=== PATIENT | male | born 1950 | race Caucasian/White ===

== ENCOUNTER → 2020-07-29 | Outpatient (CLI) | payer OTHER ==
[~2020-07-29] MED LIST: RELIEF FACTOR PO
== END ==
LOC: LAB 09:22
PROVIDERS: ATTEND Orthopaedic Surgery
DX: Z01.812 Encounter for preprocedural laboratory examination (principal); Z20.828 Contact with and (suspected) exposure to other viral communicable diseases

== ENCOUNTER 2020-08-04 07:31 | Day surgery (SDC) | payer OTHER ==
[2020-07-29 09:22] LABS: URINE BILIRUBIN NEGATIVE (Negative); URINE BLOOD NEGATIVE (Negative); URINE CLARITY CLEAR; URINE COLOR YELLOW; URINE GLUCOSE-RANDOM* NEGATIVE (Negative); URINE KETONES NEGATIVE (Negative); URINE LEUKOCYTES-REFLEX NEGATIVE (Negative); URINE NITRITE-REFLEX NEGATIVE (Negative); URINE PROTEIN (DIPSTICK) NEGATIVE (Negative); URINE SPECIFIC GRAVITY <= 1.005 (1.005-1.035); URINE UROBILINOGEN 0.2 E.U./dl (0.2-1.0)
[2020-07-29 09:23] LABS: HEMATOCRIT 41.9 % (42.0-52.0); HEMOGLOBIN 14.4 gm/dL (14.0-18.0); MCH 31.5 pg (26.0-34.0); MCHC 34.5 g/dL (28.0-37.0); MCV 91.4 fL (80.0-100.0); RBC 4.58 mil/uL (4.50-6.00); RDW 12.6 % (10.5-14.5); WBC 6.3 thou/uL (4.0-11.0)
[2020-07-29 09:35] LABS: ALBUMIN 4.1 g/dL (3.4-5.0); CREATININE 1.4 mg/dL (0.7-1.3); POTASSIUM 4.1 mmol/L (3.5-5.1)
[2020-07-29 09:48] LABS: PROTIME 10.4 Seconds (9.3-11.4)
[2020-08-04] VITALS (8 sets, daily range): BP systolic 115–178; BP diastolic 66–91
[~2020-08-04] VITALS: Ht 182.9 cm; Wt 101.6 kg
--- NOTE | 2020-08-04 15:32 | NUR ---
PT ARRIVED AT 1300, ALERT AND ORIENTED*4. C/O LEFT KNEE PAIN, PAIN MEDICATION ADMINISTERED NEEDED. LEFT KNEE INCISION REMAINS DRY AND INTACT, BERNY DRESSING IN PLACE. COLD APPLIED TO LEFT KNEE PER ORDER. SCD AND DAYSI HOSE IN PLACE. PT PARTICIPATED IN THERAPY AND TOLERATED WELL. UP WITH 1 MIN ASSIST, GB AND WALKER. Q1H VISUAL CHECKS. CALL LIGHT WITHIN REACH
--- NOTE | 2020-08-04 15:47 | NUR ---
ASSESSMENT: CM REVIEWED CHART AND SPOKE WITH PT. PT IS S/P TKA. PT REPORTS LIVING IN A HOUSE WITH HIS . PT REPORTS ABOUT 6 STEPS TO ENTER WITH NO HANDRAIL. PT REPORTS ONCE INSIDE PT HAS ABOUT 13 STEPS WITH HR TO HIS BEDROOM. PT REPORTS THAT HE HAS NO DME AT HOME. PHYSICAL THERAPY IS WORKING WITH PATIENT AND HE IS NEEDING A WALKER FOR HOME. CM DISCUSSED WITH PT AND HAS NO PREFERENCE OF DME COMPANY. CM SPOKE WITH [facility] WHO STATES THEY CAN DELIVER WALKER TO PATIENTS ROOM TOMORROW. PT WILL CONTINUE TO WORK WITH THERAPY. CM WILL CONTINUE TO FOLLOW TO ASSIST NEEDED.
--- NOTE | 2020-08-05 03:59 | NUR ---
PT C/O PAIN AT THE BACK OF HIS L KNEE,MANAGED WITH MED.UP WITH SBA TO THE TOILET,GOOD ENDURANCE NOTED.PT WITH GOOD URINE OUTPUT.NO BM NOTED THIS SHIFT.BERNY DRSG INTACT.DAYSI VIDAL/MARÍA AND POLAR PACK IN PLACE.PT LOOKING FORWARD TO BE DC'D LATER TODAY.CALL LIGHT WITHIN REACH.
[2020-08-05 04:17] VITALS: BP 113/64
[2020-08-05 06:15] LABS: HEMATOCRIT 32.7 % (42.0-52.0); HEMOGLOBIN 11.2 gm/dL (14.0-18.0); MCH 31.7 pg (26.0-34.0); MCHC 34.4 g/dL (28.0-37.0); MCV 92.3 fL (80.0-100.0); RBC 3.55 mil/uL (4.50-6.00); RDW 12.7 % (10.5-14.5); WBC 11.1 thou/uL (4.0-11.0)
[2020-08-05 06:55] VITALS: BP 126/54
--- NOTE | 2020-08-05 10:19 | NUR ---
on-going assessment: CM REVIEWED CHART AND SPOKE WITH PT. PTS WALKER WAS DELIVERED TO HIS ROOM BY [facility]. PT REPORTS ATTENDING IS ARRANGING HIS OUTPATIENT THERAPY. PT IS TO CONTINUE TO WORK WITH THERAPIES TODAY AND IF CLEARED WILL DISCHARGE. PT REPORTS NO FURTHER NEEDS FROM CM.
[2020-08-05 11:01] VITALS: BP 126/54
--- NOTE | 2020-08-05 11:35 | NUR ---
ASSUMED CARE AT 0700. PT IS A&O X4. PT DENIES OF SOA, NUMBNESS, TINGLING. PT COMPLAINS OF MILD PAIN AND WAS GIVEN PAIN MEDICATION. DRESSING IS INTACT. POLAR CARE IS FILLED. FLU SHOT WAS GIVEN. LEFT AC IV WAS INTACT AND WITHOUT REDNESS AND SWELLING. IV WAS D/C AT DISCHARGE. PT WAS DISCHARGE AT 1130 WITH . PT WAS EDUCATED ON HOW TO MANAGE DRESSING AND POLAR CARE. FALL PRECAUTION.
--- NOTE | 2020-08-10 08:16 | O ---
[facility] [place] [address] OPERATIVE REPORT Name: JOE GRAYSON Room #: DEP [facility] M.Mark.#: [id number] Admission: 08/04/20 Attend Phys: Sergio Mccormack MD Discharge: 08/05/20 Date of : 54 Report #: [id number] THIS REPORT FOR: cc: Elham Leal MD, Aimee B. MD Abraham,Sergio Porras MD ~ CC: Elham Mccormack DATE OF SERVICE: 08/04/2020 PREOPERATIVE DIAGNOSIS: Left knee osteoarthritis. POSTOPERATIVE DIAGNOSIS: Left knee osteoarthritis. PROCEDURE: Left total knee arthroplasty using Navio robotic professional nursing assistant. SURGEON: Sergio Mccormack MD. RESTORATION OFFICER: Geovanna Hackett PA-C. INDICATIONS FOR RESTORATION OFFICER: Throughout the case, extensive retraction and manipulation of the knee was required. This was afforded to me by my professional nursing assistant. ANESTHESIA: LMA with an adductor canal block. IMPLANTS: Weeks and Nephew size 8 Journey II BCS cobalt chrome femur, size 6 tibia, size 10 constrained polyethylene and a size 38 patella. TOURNIQUET TIME: 55 minutes. ESTIMATED BLOOD LOSS: 25 mL. COMPLICATIONS: None. SPECIMENS: None. CONDITION UPON LEAVING THE OPERATING ROOM: Stable. INDICATIONS FOR PROCEDURE: The patient is a 69-year-old gentleman with left knee osteoarthritis. He had failed conservative measures for this and after discussion with him, he elected for left total knee arthroplasty. DESCRIPTION OF PROCEDURE: Risks, benefits, alternatives, complications were discussed in detail with the patient including but not limited to risk of [facility] [address] [place] [address] OPERATIVE REPORT Name: JOE GRAYSON Room #: DEP [facility] M.R.#: [id number] Admission: 08/04/20 Attend Phys: Sergio Mccormack MD Discharge: 08/05/20 Date of : 54 Report #: [id number] anesthesia, risk of damage to nerves, arteries, blood vessels, risk for infection, bleeding, risk for continued knee pain, need for reoperation. Informed consent was obtained from the patient. Left knee was appropriately marked in the preoperative holding area. IV Ancef was given for preoperative antibiotics. Adductor canal block was placed by Anesthesia. He was brought to the operating room and placed in the supine position on the operating room table. LMA anesthesia was induced without complication. Tourniquet was placed on the left thigh. Left lower extremity was prepped and draped in normal sterile fashion. Timeout was performed properly identifying the patient and procedure as well as the instrumentation and implants. All in the operating room were in agreement. Left lower extremity was exsanguinated, tourniquet was inflated. Tourniquet time was 55 minutes. Standard midline approach to knee was made with 10 blade through the skin. Dissection was taken down sharply to the fascia and deep flaps were developed medially and laterally. Fresh 10 blade was used to make a medial parapatellar arthrotomy and the knee was inspected. There was severe tricompartmental osteoarthritis. ACL and PCL were removed sharply. Reference pins were placed in the femur and the tibia. The knee was then digitally mapped using the Navio system. Intraoperative plan was made and we sized the size 8 femur with a size 6 tibia and a size 10 spacer. After acceptance of the intraoperative plan, the distal femoral cut was made with a Navio bur. Distal femoral cutting block was pinned in place and chamfer cuts were made. Attention was turned to the tibia. Tibial resection guide was pinned in place using Navio for placement and tibial resection was made. Flexion and extension gaps were then checked and found to have good balance medially and laterally in flexion and extension. Tibia was sized, found to be a size 6. A size 6 tibial trial was placed, pinned and punched. A size 8 femoral trial was placed and box cut was made. This was then trialed with a size 10 polyethylene. The size 10 polyethylene demonstrated 1 millimeter laxity medially throughout range of motion. In deep flexion, it did demonstrate 3-4 mm of laxity laterally. It was felt we could make up for this with a constrained implant, 9 mm was resected from the posterior surface of the patella and a size 38 patellar trial button was placed. Knee was taken through range of motion, found to be stable, found to have good patellar tracking. Trial components were removed. Bony ends were thoroughly irrigated with normal saline. A final size 6 tibia, size 8 Journey II BCS cobalt chrome femur and a size 38 patella were cemented in place using standard cementation techniques. While the cement cured, a periarticular injection consisting of morphine, ropivacaine, epinephrine and Toradol was placed around the knee joint capsule. After the cement cured, tourniquet was deflated. Hemostasis was obtained with Bovie cautery. Final size 10 constrained polyethylene was placed. A gram of vancomycin was placed deep in the joint. Fascia was closed with 0 Vicryl, skin was closed with 2-0 Vicryl, 3-0 Monocryl. Dermabond and a BERNY dressing was [address] [address] OPERATIVE REPORT Name: JOE GRAYSON Room #: DEP [facility] Wing#: [id number] Admission: 08/04/20 Attend Phys: Sergio Mccormack MD Discharge: 08/05/20 Date of : 54 Report #: [id number] applied. The patient tolerated this procedure well and went to the recovery room under care of Anesthesia postoperatively. <ELECTRONICALLY SIGNED> By: Sergio Mccormack MD 08/10/20 0816 1202 1239 Sergio Mccormack MD /nt
== END 2020-08-05 11:43 | disposition home or self-care (01) ==
LOC: TBA 07:31 → OR 07:31 → 4S 11:09 → OR 13:19
PROVIDERS: ATTEND Orthopaedic Surgery
DX: M17.12 Unilateral primary osteoarthritis, left knee (principal); M25.562 Pain in left knee; Z98.890 Other specified postprocedural states; Z79.899 Other long term (current) drug therapy; Z87.891 Personal history of nicotine dependence
CPT/HCPCS: 10195; 50010; 50101; 50415; 50954; 51130; 51225; 51320; 53000; 53078; 54118; 56527; 56528; 57095; 57103; 57110; 57127; 57180; 58239; 62110; 62900; 70005